=== PATIENT | male | born 1955 | race Caucasian/White ===

== ENCOUNTER 2021-11-10 07:15 | Day surgery (SDC) | payer MEDICARE, OTHER ==
[~2021-11-10] VITALS: Ht 180.3 cm; Wt 99.8 kg
[~2021-11-10 07:15] MED LIST: ACYCLOVIR400 MG PO; ADVAIR 100-501 EACH INH; ASPIRIN325 MG PO; BAYER CHEWABLE81 MG PO; BISOPROLOL FUMAR5 MG PO; CIALIS5 MG PO; HYDROCODON-ACE1 EA10 PO; MELOXICAM5 MG PO; METAMUCIL PACK1 EACH PO; METAMUCIL0.52 GM PO; METFORMIN HCL500 M2 PO; NAPROXEN250 MG PO; NEXIUM40 MG PO; PRILOSEC OTC20 MG PO; PROAIR HFA8.5 GM INH; SYMBICORT 80-10.2 GM INH; ZOCOR40 MG PO
[2021-11-10] MEDS ORDERED: CRESTOR10 MG PO (07:41)
--- NOTE | 2021-11-10 08:43 | NUR ---
11/10/21 0843 MARYANN SOLO 0838-PATIENT ARRIVES IN PACU ON 3L VIA NC. PATIENT AWAKES TO VERBAL STIMULI. DENIES PAIN AND NAUSEA. RESP EVEN AND UNLABORED.
--- NOTE | 2021-11-10 10:07 | OR ---
[facility] [address] [place], [place] [address] Signed DATE OF OPERATION: 11/10/2021 SURGEON: Hang Pereira MD PREOPERATIVE DIAGNOSES: 1. Flexible sigmoidoscopy in 1992 at age 41. 2. History of diverticulosis. 3. History of hyperplastic polyps. 4. History of internal hemorrhoids. 5. History of radical prostatectomy in 2010 with slight increase in PSA level. POSTOPERATIVE DIAGNOSES: 1. Moderate right and left-sided diverticulosis. 2. Minimal internal hemorrhoids. 3. 5 mm polyp at 75 cm. 4. 3 mm polyp at 60 cm. PROCEDURE: Colonoscopy with hot biopsy. ESTIMATED BLOOD LOSS: None. INDICATIONS: Roberta is a 66-year-old gentleman who had developed diverticulitis at the age of 41 back in 1998. He had an office based flexible sigmoidoscopy. I performed his colonoscopies in 2005, 2010, and 2015. Again, diverticulosis along with hyperplastic polyps and internal hemorrhoids. He had his radical prostatectomy in 2010. Recently, there has been a slight increase in his PSA level. He was asked to see me urgently for repeat endoscopy before considering a boost of radiation therapy. In the office, I had given him a pamphlet on colonoscopy. He remembers the test quite well. There is risk including, but not limited to gas bloating, crampy abdominal pain, bleeding, perforation requiring surgery, and missed diagnosis. He also does well with Versed and fentanyl. He recalls the need for the IV conscious sedation. He had expressed understanding and wished to proceed. PROCEDURE NOTE: Roberta was taken into our endoscopy suite and placed in the left lateral decubitus position. He was given a total of 4 mg of Versed and 100 mcg of fentanyl to cover the case. A digital rectal exam was performed. He has good sphincter tone. Very minimal Electronically Signed By: HANG PEREIRA MD 11/10/21 [facility] PATIENT NAME: ROBERTA RYDER OPERATIVE REPORT DATE OF : 51 REPORT #: [id number] PHYSICIAN: HANG PEREIRA MD PCP: ARIAN SMITH MD REPORT IS CONFIDENTIAL AND NOT TO BE RELEASED WITHOUT AUTHORIZATION [facility] [address] [place], [place] [address] [address] of any hemorrhoid tissue. 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 I did not feel any specific nodules. He certainly has some induration and scarring. After this, the adult colonoscope was introduced and advanced quite readily into the cecum itself without difficulty. We could easily see the appendiceal orifice and the ileocecal valve. He does have some right-sided diverticula along with his left-sided diverticula. They are moderate in size, moderate in number, and scattered about. The scope was then slowly withdrawn. The two polyps mentioned above were removed with the help of hot biopsy forceps. Once in the rectum, the scope had been retroflexed, really very minimal internal hemorrhoid tissue. After this, the gas was suctioned out. The colonoscope removed. Roberta tolerated the procedure quite well. RECOMMENDATIONS: Roberta will follow up in my office in 7 to 14 days to review his results. Hang Pereira MD ALB/MODL /[id number] cc: MD Marco Antonio Camacho, VALERIE Lim MD Brian Lawenda, MD Yovani Reis MD, PH.D. Copies: HANG PEREIRA MD, THOMAS J MD LARSEN, BRIAN M DC LOWE, BRUCE MD Electronically Signed By: HANG PEREIRA MD 11/10/21 1007 PATIENT NAME: ROBERTA RYDER OPERATIVE REPORT DATE OF : 51 REPORT #: [id number] PHYSICIAN: HANG PEREIRA MD PCP: ARIAN SMITH MD REPORT IS CONFIDENTIAL AND NOT TO BE RELEASED WITHOUT AUTHORIZATION [address] [address] Signed ARIAN GARSIA MD, JUNO ~ Electronically Signed By: HANG PEREIRA MD 11/10/21 1007 PATIENT NAME: ROBERTA RYDER OPERATIVE REPORT DATE OF : 51 REPORT #: [id number] PHYSICIAN: HANG PEREIRA MD PCP: ARIAN SMITH MD REPORT IS CONFIDENTIAL AND NOT TO BE RELEASED WITHOUT AUTHORIZATION
--- NOTE | 2021-11-11 12:35 | PATH ---
[facility] [address] [place], [place] [address] Signed SPECIMEN(S): A POLYP AT 75 CM SPECIMEN(S): B POLYP AT 60 CM SPECIMEN SOURCE: A. POLYP AT 75 CM B. POLYP AT 60 CM CLINICAL HISTORY: Colonoscopy. Diverticulosis, hyperplastic polyps. FINAL PATHOLOGIC DIAGNOSIS: A. Colon, polyp at 75 cm, polypectomy: - Hyperplastic polyp. - Negative for dysplasia or malignancy. B. Colon, polyp at 60 cm, polypectomy: - Inflammatory polyp. - Negative for dysplasia or malignancy. NAL:cml:C2NR MICROSCOPIC EXAMINATION: Histologic sections of all submitted blocks are examined by light microscopy. These findings, together with the gross examination, support the pathologic diagnosis. GROSS DESCRIPTION: Two specimens are received in two containers, labeled "MAYA." A. The specimen, labeled "JI, #1 polyp at 75 cm," is received in formalin and consists of one barriga soft tissue fragment that measures 0.3 cm in greatest dimension. The specimen is entirely submitted in cassette (A1). B. The specimen, labeled "JI, #2 polyp at 60 cm," is received in formalin and consists of one barriga soft tissue fragment that measures 0.3 cm in greatest dimension. The specimen is entirely submitted in cassette (B1). AT (under the direct supervision of a pathologist) The Gross Description was prepared using a voice recognition system. The report was reviewed for accuracy; however, sound-alike word errors, addition and/or deletions may occur. If there is any question about this report, please contact Client Services. PERFORMING LABORATORY: PATIENT NAME: ROBERTA RYDER PATHOLOGY DATE OF : 51 REPORT #: [id number] PHYSICIAN: SYED ALMONTE PCP: ARIAN SMITH MD REPORT IS CONFIDENTIAL AND NOT TO BE RELEASED WITHOUT AUTHORIZATION [address] [place], [place] [address] Signed The technical component was performed by [facility], [address] [place] [address] (Headwaitress: Suni Malin MD; CLIA# [id number]). Professional interpretation was performed by [facility], [facility], [address] [place] [id number] (CLIA# [id number]). Diagnostician: Kaylynn Moyer MD Pathologist Electronically Signed 11/11/2021 Copies: ~ PATIENT NAME: ROBERTA RYDER PATHOLOGY DATE OF : 51 REPORT #: [id number] PHYSICIAN: SYED ALMONTE PCP: ARIAN SMITH MD REPORT IS CONFIDENTIAL AND NOT TO BE RELEASED WITHOUT AUTHORIZATION
== END 2021-11-10 09:20 | disposition home or self-care (01) ==
LOC: DS 07:15 → OPS 07:15 → DS 09:00 → OPS 09:20
PROVIDERS: ATTEND Colon & Rectal Surgery
PROC: 0DBH8ZX Excision of Cecum, Via Natural or Artificial Opening Endoscopic, Diagnostic (ICD-10-PCS; principal; 2021-11-10 08:10)
DX: K63.5 Polyp of colon (principal); K64.8 Other hemorrhoids; K57.30 Diverticulosis of large intestine without perforation or abscess without bleeding; I10 Essential (primary) hypertension; K21.9 Gastro-esophageal reflux disease without esophagitis; E78.5 Hyperlipidemia, unspecified; Z87.891 Personal history of nicotine dependence; Z88.8 Allergy status to other drugs, medicaments and biological substances; Z86.010 Personal history of colon polyps; Z85.46 Personal history of malignant neoplasm of prostate
CPT/HCPCS: 99153; G0500; J2250; J3010

== ENCOUNTER 2023-01-26 00:29 | Emergency (ER) | payer MEDICARE, OTHER ==
[~2023-01-26] VITALS: Ht 180.3 cm; Wt 99.5 kg
[~2023-01-26 00:29] MED LIST changes: +CRESTOR10 MG PO
[2023-01-26] MEDS ORDERED: AZITHROMYCIN250 MG PO (00:46)
[2023-01-26] MEDS ORDERED: PREDNISONE20 MG PO (00:46)
[2023-01-26] MEDS ORDERED: ROSUVASTATIN CA10 MG PO (00:49)
--- NOTE | 2023-01-26 13:16 | EKG ---
[facility] [address] [facility] [place] [address] Signed Normal sinus rhythm Normal ECG When compared with ECG of 23-AUG-2018 20:44, No significant change was found Confirmed by Joellen Burden MD () on 01/26/2023 1:16:05 PM Electronically Signed By: JOELLEN BURDEN MD 01/26/23 1316 PATIENT NAME: ROBERTA RYDER Electrocardiogram DATE OF : 51 PHYSICIAN: JOELLEN BURDEN MD REPORT #: [id number] REPORT IS CONFIDENTIAL AND NOT TO BE RELEASED WITHOUT AUTHORIZATION
== END 2023-01-26 02:06 | disposition home or self-care (01) ==
LOC: ED 00:29
DX: J44.1 Chronic obstructive pulmonary disease with (acute) exacerbation (principal); E78.00 Pure hypercholesterolemia, unspecified; I48.91 Unspecified atrial fibrillation; Z88.8 Allergy status to other drugs, medicaments and biological substances; Z79.899 Other long term (current) drug therapy; Z79.52 Long term (current) use of systemic steroids
CPT/HCPCS: 36415; 71045; 80053; 83735; 83880; 84484; 85025; 93005; 93010; 94640; 99285-25